=== PATIENT | female | born 1965 | race Caucasian/White ===

== ENCOUNTER 2018-04-05 17:33 | Emergency (ER) | payer OTHER ==
[2018-04-05] MEDS: LORAZEPAM 1 MG TAB PO (19:28)
== END 2018-04-05 20:25 | disposition home or self-care (01) ==
LOC: FTE 17:33
DX: F41.9 Anxiety disorder, unspecified (principal); Z87.891 Personal history of nicotine dependence
CPT/HCPCS: 99283-25; Z7502